=== PATIENT | male | born 1940 | race Caucasian/White ===

== ENCOUNTER 2022-06-26 13:19 | Outpatient (CLI) | payer MEDICARE, BC | END 2022-06-26 13:20 | disposition home or self-care (01) | LOC: BICMAMMO 13:19 | PROVIDERS: ATTEND Family Medicine | DX: M81.0 Age-related osteoporosis without current pathological fracture (principal); R05.9 Cough, unspecified | CPT/HCPCS: 71046; 77080 ==

== ENCOUNTER 2023-08-19 09:43 | Outpatient (CLI) | payer MEDICARE | END 2023-08-19 09:44 | disposition home or self-care (01) | LOC: BICMAMMO 09:43 | PROVIDERS: ATTEND Family Medicine | DX: M81.0 Age-related osteoporosis without current pathological fracture (principal); M85.89 Other specified disorders of bone density and structure, multiple sites | CPT/HCPCS: 77080 ==